=== PATIENT | female | born 1940 | race Caucasian/White ===

== ENCOUNTER 2025-04-20 08:11 | Observation (INO) | payer MEDICARE, SELFPAY ==
[2025-04-20] VITALS (52 sets, daily range): BP systolic 83–137; BP diastolic 49–82; PULSE 69–97; RESP 14–29; TEMP 36.4–38.2; O2SAT 88–97; BMI 25.2
--- NOTE | 2025-04-20 08:20 | XR_ITS ---
WS: [id number] Portable AP upright chest, 04/20/2025 Clinical Data: Weakness Comparison: None. Findings: No nodules or masses are seen. There is minimal opacity at the left costophrenic angle which could represent atelectasis and/or small left effusion. The heart is normal. The pulmonary vascularity is not increased. No pneumonia or pneumothorax is seen. The aortic arch and descending thoracic aorta show mild tortuosity. There are monitor leads on the chest wall. The patient's clothing obscures only minimal detail over the central chest. XR/XR chest 1V portable [id number] Impression: 1. Minimal blunting of left costophrenic angle. 2. Atherosclerosis.
--- NOTE | 2025-04-20 08:21 | W.ED.WEAKNES ---
HPI - Weakness General: Chief complaint: Weakness Stated complaint: Weakness Time Seen by Provider: 04/20/25 08:14 History of Present Illness: 85-year-old female with a history of a glioblastoma on Mekinist and Tafinlar, chronic anticoagulation on Eliquis she says for an irregular heart rhythm, hypertension who presents emergency room with weakness. She is here visiting family from [facility]. Said she became weak yesterday and today was so weak it took 2 people just to get her into the ambulance cot. No focal motor deficits. She is very slow to speak but does answer questions appropriately. She says she feels very weak. No chest pain. No abdominal pain. She has had no vomiting. Related Data Home Medications ?Medication ?Instructions ?Recorded ?Confirmed apixaban 5 mg tablet (Eliquis) 5 mg PO BID 04/20/25 04/20/25 calcium 600 mg (as 1 tab PO DAILY 04/20/25 04/20/25 carbonate)-vitamin D3 10 mcg (400 unit) tablet cyanocobalamin (vitamin B-12) 500 500 mcg PO DAILY 04/20/25 04/20/25 mcg tablet dabrafenib 75 mg capsule (Tafinlar) 75 mg PO BID 04/20/25 04/20/25 furosemide 40 mg tablet 40 mg PO DAILY 04/20/25 04/20/25 loperamide 2 mg capsule 2 mg PO DAILY PRN Diarrhea 04/20/25 04/20/25 loratadine 10 mg tablet 10 mg PO DAILY 04/20/25 04/20/25 metoprolol succinate 50 mg 50 mg PO DAILY 04/20/25 04/20/25 tablet,extended release 24 hr potassium chloride 20 mEq 20 meq PO DAILY 04/20/25 04/20/25 tablet,extended release(part/cryst) spironolactone 50 mg tablet 50 mg PO DAILY 04/20/25 04/20/25 tramadol 50 mg tablet 50 mg PO Q6H PRN Pain 04/20/25 04/20/25 trametinib 2 mg tablet (Mekinist) 2 mg PO .QOD 04/20/25 04/20/25 Allergies Allergy/AdvReac Type Severity Reaction Status Date / Time amoxicillin Allergy Unknown Verified 04/20/25 11:32 atorvastatin Allergy Unknown Verified 04/20/25 11:32 codeine Allergy Unknown Verified 04/20/25 11:32 Review of Systems Narrative: Constitutional symptoms: Negative except as documented in HPI. Skin symptoms: Negative except as documented in HPI. Eye symptoms: Negative except as documented in HPI. ENMT symptoms: Negative except as documented in HPI. Respiratory symptoms: Negative except as documented in HPI. Cardiovascular symptoms: Negative except as documented in HPI. Gastrointestinal symptoms: Negative except as documented in HPI. Genitourinary symptoms: Negative except as documented in HPI. Musculoskeletal symptoms: Negative except as documented in HPI. Neurologic symptoms: Negative except as documented in HPI. Psychiatric symptoms: Negative except as documented in HPI. Endocrine symptoms: Negative except as documented in HPI. Physical Exam Narrative: EXAM NARRATIVE: General: Patient is slightly somnolent but arousable slow to answer questions.. Skin: Warm, dry. Head: Normocephalic, atraumatic. Neck: Supple, trachea midline. Eye: Extraocular movements are intact. Ears, nose, mouth and throat: Dry oral mucosa Cardiovascular: Regular, Normal peripheral perfusion. Respiratory: Lungs are clear to auscultation, respirations are non-labored, breath sounds are equal, Symmetrical chest wall expansion. Gastrointestinal: Soft, Nontender, Non distended Musculoskeletal: Normal ROM, no deformity. Neurological: Somnolent, oriented to family, can answer some questions appropriately but often will drift off before completing the answer., No focal neurological deficit observed. Psychiatric: Unable to assess fully. Cooperative. Course Vital Signs: Vital signs: Vital Signs Temperature 100.8 F H 04/20/25 08:13 Pulse Rate 80 04/20/25 11:30 Respiratory Rate 24 H 04/20/25 11:30 Blood Pressure 118/66 04/20/25 11:30 Pulse Oximetry 90 04/20/25 11:30 Oxygen Delivery Me thod Room Air 04/20/25 08:13 MDM - Weakness Medical Decision Making Medical decision making Patient's reason for coming to the emergency room: Weakness Social determinants: Patient is retired. She is here visiting family. She is from [place]. I reviewed the patient's medical record. Patient has had no previous visits to this facility. 85-year-old female with a history of a glioblastoma on Mekinist and Tafinlar, chronic anticoagulation on Eliquis she says for an irregular heart rhythm, hypertension I reviewed the patient's current home meds Patient is on Macinnis and Tafinlar for glioblastoma. She is anticoagulated on Eliquis. Alternate historians: Family arrives later and gives more history Differential diagnosis for patient presenting with generalized weakness including but not limited to and based on the above HPI, review of systems and physical exam: Sepsis. Dehydration. Renal failure. Electrolyte abnormalities. Anemia. Congestive heart failure. Hypotension. Coronary syndrome. Hepatitis. Cirrhosis. Infections such as pneumonia, urinary tract infection, [place] illness, Cellulitis, Viral infections including influenza and Covid-19. Workup: labwork and lab/exam driven imaging ordered to evaluate, rule in and rule out above pathologies. EKG: Time 9:44 AM. Rate 91. Normal sinus rhythm, No ST-T changes, no ectopy, left bundle branch block, This was reviewed and interpreted by myself the ER physician at 9:50 AM. Patient has no previous EKGs. She is having no cardiac symptoms at this time Chest x-ray: No acute process. No infiltrate. No pneumothorax. This was reviewed and interpreted by myself the emergency room physician. I also reviewed the radiology report. Lab Review: Laboratory results were reviewed and interpreted by myself the emergency room physician. No leukocytosis. No anemia. No renal failure. Lactic acid is 1. Initial troponin is 101 and repeat is 116. There is some change. Assessment of risk: Level of risk: Moderate risk patient. Immunocompromise. Hospitalization considerations: Patient is being admitted for urinary tract infection and weakness. Reexamination: Patient remains somewhat somnolent. She does answer questions a little better now. Family is present. No oxygen requirement Consultation: I spoke with Dr. Rush who agrees to admission Assessment and plan: Urinary tract infection Dehydration Encephalopathy ?IV Rocephin ? IV normal saline 2 L per ?At this point she does not appear septic. No leukocytosis. No lactic acidosis. However she is encephalopathic and has an infection so empirically treated for possible sepsis - 2 L normal saline bolus - IV cefepime for urinary tract infection -Sepsis quality measures. -Lactic acid with a reflex was ordered. -Blood cultures were ordered. ?I reevaluated the patient's volume status after sepsis fluids were given. -I discussed the patient with the hospitalist on-call who is admitting the patient. - Discussed findings and plan with patient. Answered any questions. - All laboratory values were reviewed and interpreted personally by myself, the ER physician - All imaging was reviewed and interpreted personally by myself, the ER physician. - Evaluation and treatment of this problem were appropriate in the emergency setting Lab Data 04/20/25 08:58 04/20/25 08:58 Radiology Impressions Chest X-Ray 04/20/25 08:20 Impression: 1. Minimal blunting of left costophrenic angle. 2. Atherosclerosis. Laboratory Results WBC 4.46 10^3/uL (3.29-11.43) 04/20/25 08:58 RBC 4.41 10^6/uL (3.85-5.65) 04/20/25 08:58 Hgb 12.90 g/dL (11.27-16.99) 04/20/25 08:58 Hct 39.7 % (36-47) 04/20/25 08:58 MCV 90.0 fl (85-98) 04/20/25 08:58 MCH 29.3 pg (27-33) 04/20/25 08:58 MCHC 32.5 g/dL (30-55) 04/20/25 08:58 RDW 15.5 % (12.1-15.1) H 04/20/25 08:58 Plt Count 276 10^3/cmm (157-399) 04/20/25 08:58 MPV 9.5 fL (7.4-10.4) 04/20/25 08:58 Neut % (Auto) 69.8 % 04/20/25 08:58 Lymph % (Auto) 20.6 % 04/20/25 08:58 [place] % (Auto) 8.1 % 04/20/25 08:58 Eos % (Auto) 0.0 % 04/20/25 08:58 Baso % (Auto) 0.4 % 04/20/25 08:58 Neut # (Auto) 3.11 10^3/uL (1.8-7.7) 04/20/25 08:58 Lymph # (Auto) 0.9 10^3/uL (0.8-4.8) 04/20/25 08:58 [place] # (Auto) 0.4 10^3/uL (0.2-0.9) 04/20/25 08:58 Eos # (Auto) 0.0 10^3/uL (0.0-0.8) 04/20/25 08:58 Baso # (Auto) 0.0 10^3/uL (0.0-0.1) 04/20/25 08:58 Nucleated RBC % (auto) 0 % 04/20/25 08:58 Nucleated RBCs # 0.0 /100WBC 04/20/25 08:58 Sodium 135 mmol/L (136-145) L 04/20/25 08:58 Potassium 3.6 mmol/L (3.5-5.1) 04/20/25 08:58 Chloride 98 mmol/L (98-107) 04/20/25 08:58 Carbon Dioxide 25 mmol/L (22-29) 04/20/25 08:58 Anion Gap 15.6 (5-19) 04/20/25 08:58 BUN 14 mg/dL (8-23) 04/20/25 08:58 Creatinine 0.9 mg/dL (0.5-0.9) 04/20/25 08:58 GFR Calculation Not Reportable 04/20/25 08:58 Glucose 171 mg/dL (65-115) H 04/20/25 08:58 Calculated Osmolality 285 mOsm/kg (285-295) 04/20/25 08:58 Lactic Acid 1.0 mmol/L (0.5-2.2) 04/20/25 08:58 Calcium 8.9 mg/dL (8.5-10.5) 04/20/25 08:58 Total Bilirubin 0.4 mg/dL (0.15-1.2) 04/20/25 08:58 AST 42 U/L (0-32) H 04/20/25 08:58 ALT 11 U/L (0-33) 04/20/25 08:58 Alkaline Phosphatase 110 U/L (35-105) H 04/20/25 08:58 Troponin T Baseline 101 ng/L (0-10) H* 04/20/25 08:58 Troponin T 60 Minute 115.0 ng/L (0-10) H 04/20/25 10:04 Delta Troponin T 14.0 ABS# (0-10) H* 04/20/25 10:04 C-Reactive Protein 18.4 mg/L (0.0-4.9) H 04/20/25 08:58 Total Protein 6.1 g/dL (6.6-8.7) L 04/20/25 08:58 Albumin 3.3 g/dL (3.5-5.2) L 04/20/25 08:58 Globulin 2.8 g/dL (1.3-4.6) 04/20/25 08:58 Procalcitonin 0.17 ng/mL (0-0.5) 04/20/25 08:58 Urine Color Yellow (Yellow) 04/20/25 08:49 Urine Appearance Cloudy (CLEAR) A 04/20/25 08:49 Urine pH 6.5 (5-7) 04/20/25 08:49 Ur Specific [place] 1.014 (1.005-1.030) 04/20/25 08:49 Urine Protein 1+ (Negative) A 04/20/25 08:49 Urine Glucose (UA) Negative (Normal) 04/20/25 08:49 Urine Ketones Negative (Negative) 04/20/25 08:49 Urine Blood Trace (Negative) A 04/20/25 08:49 Urine Nitrate Positive (Negative) A 04/20/25 08:49 Urine Bilirubin Negative (Negative) 04/20/25 08:49 Urine Urobilinogen 0.2 mg/dL (Negative) 04/20/25 08:49 Ur Leukocyte Esterase 3+ (Negative) A 04/20/25 08:49 Urine RBC 0-2 /hpf (0-2) 04/20/25 08:49 Urine WBC >100 /hpf (0-5) H 04/20/25 08:49 Ur Squamous Epith Cells 0-5 /hpf (0-5) 04/20/25 08:49 Amorphous Sediment Not Reportable 04/20/25 08:49 Urine Bacteria 4+ /hpf (NONE) H 04/20/25 08:49 Hyaline Casts 1.65 /lpf 04/20/25 08:49 Influenza A (PCR) Negative (Negative) 04/20/25 08:49 Influenza Type B (PCR) Negative (Negative) 04/20/25 08:49 RSV (PCR) Negative (Negative) 04/20/25 08:49 SARS-CoV-2 (PCR) Negative (Negative) 04/20/25 08:49 All radiology interpretation(s) finalized by discharge Discharge Plan Discharge Admit Provider: Rao Gutierrez Condition: Stable Coding Level of Care Code ED Sales Consultant Insurance for Abdoulg Terry
[2025-04-20 09:06] LABS: Hematocrit 39.7 % (36-47); Hemoglobin 12.90 g/dL (11.27-16.99); Mean Corpuscular HGB Conc 32.5 g/dL (30-55); Mean Corpuscular Hemoglobin 29.3 pg (27-33); Mean Corpuscular Volume 90.0 fl (85-98); Nucleated Red Blood Cells % 0 %; Platelet Count 276 10^3/cmm (157-399); Red Blood Count 4.41 10^6/uL (3.85-5.65); White Blood Count 4.46 10^3/uL (3.29-11.43)
[2025-04-20 09:15] LABS: Glucose Urine UA Negative (Normal); Nitrate Urine Positive (Negative); Specific Gravity, Urine 1.014 (1.005-1.030)
[2025-04-20 09:33] LABS: Alanine Aminotransferase 11 U/L (0-33); Albumin Level 3.3 g/dL (3.5-5.2); Alkaline Phosphatase 110 U/L (35-105); Anion Gap 15.6 (5-19); Aspartate Amino Transferase 42 U/L (0-32); Blood Urea Nitrogen 14 mg/dL (8-23); Calcium 8.9 mg/dL (8.5-10.5); Carbon Dioxide 25 mmol/L (22-29); Chloride 98 mmol/L (98-107); Globulin 2.8 g/dL (1.3-4.6); Glucose 171 mg/dL (65-115); Lactic Sepsis W/Reflex 1.0 mmol/L (0.5-2.2); Osmolality Calculated 285 mOsm/kg (285-295); Potassium 3.6 mmol/L (3.5-5.1); Sodium 135 mmol/L (136-145); Total Protein 6.1 g/dL (6.6-8.7)
[2025-04-20 09:40] LABS: Procalcitonin 0.17 ng/mL (0-0.5)
[2025-04-20 09:44] LABS: Troponin(5th) Baseline 101 ng/L (0-10)
--- NOTE | 2025-04-20 09:44 | ECG_ITS ---
[facility] Date: 2025-[facility]20 Pat Name: Jennifer Guzman Department: Room: Gender: Female Jewel Stringer: : 1940 Requested By: Prerna Chavez Order Number: [id number] Reading MD: VIVIEN DUDLEY Measurements Intervals [place] Rate: 91 P: 2 SD: 153 QRS: -47 QRSD: 133 T: 119 QT: 373 QTc: 459 Interpretive Statements SINUS RHYTHM LEFT AXIS DEVIATION [QRS AXIS < -30] LEFT BUNDLE BRANCH BLOCK [120+ ms QRS DURATION, 80+ ms Q/S IN V1/V2, 85+ ms R IN I/aVL/V5/V6] No previous ECG available for comparison Electronically Signed On 04-21-2025 20:38:33 MOLDER TRIMMER by VIVIEN DUDELY [email or web address] [id number]
[2025-04-20 09:48] LABS: Respiratory Syncytial Virus Ce NEGATIVE (Negative); SARS-CoV-2 PCR NEGATIVE (Negative)
[2025-04-20 10:07] LABS: UA Slide Review UA Slide Review Perf
[2025-04-20] MEDS: cefepime 2,000 mg SDV 2000 MG IVP (10:43)
[2025-04-20] MEDS: acetaminophen 1,000 MG/100 ML PIGGYBACK 400 MG IV (10:44)
--- NOTE | 2025-04-20 10:53 | PC.PHAR ---
Pharmacy note on both chemo medications.
--- NOTE | 2025-04-20 10:54 | PC.NURSE ---
NO ALLERGY BAND unable to assess pt medication allergies during triage. when family arrived this RN asked if they knew pts allergies they are unsure. family is going to call pts assisted living facility to get those allergies.
--- NOTE | 2025-04-20 11:36 | ECG_ITS ---
[facility] Date: 2025-[facility]20 Pat Name: Jennifer Guzman Department: Room: 266 Gender: Female Orchard Manager: : 1940 Requested By: Prerna Chavez Order Number: [id number] Reading MD: VIVIEN DUDLEY Measurements Intervals [place] Rate: 78 P: 49 AK: 187 QRS: -37 QRSD: 142 T: 142 QT: 445 QTc: 507 Interpretive Statements SINUS RHYTHM POSSIBLE LEFT ATRIAL ENLARGEMENT [-0.1mV P-WAVE IN V1/V2] LEFT AXIS DEVIATION [QRS AXIS < -30] LEFT BUNDLE BRANCH BLOCK [120+ ms QRS DURATION, 80+ ms Q/S IN V1/V2, 85+ ms R IN I/aVL/V5/V6] Compared to ECG 04/20/2025 09:44:18 No significant changes Electronically Signed On 04-21-2025 20:38:08 SOIL SCIENTIST by VIVIEN DUDLEY [email or web address] [id number]
--- NOTE | 2025-04-20 11:47 | PC.NURSE ---
This nurse took report from KEON Cervantes in ER at 1146am.
--- NOTE | 2025-04-20 12:38 | PC.NURSE ---
This nurse assumed care of pt at this time.
[2025-04-20 15:22] LABS: Troponin 5 6HR Delta 5.5 ng/L (0-12)
[2025-04-20 15:45] LABS: Troponin 5 6HR 106.5 ng/L (0-10)
--- NOTE | 2025-04-20 18:32 | PM.HP ---
Providers/Chief Complaint Admitting Physician: Rao Gutierrez MD Chief Complaint: Weakness History of Present Illness Jennifer Guzman is a 85 year old female . She is a poor historian, majority of history taken from handoff from the ER doc. She has a history of glioblastoma on chemotherapy, chronic anticoagulation on Eliquis for atrial fibrillation, hypertension she came to the ED this afternoon while visiting family. Patient had become weak the day before noticed by family, had to lift her to get her to the ambulance. Generalized, nonfocal. When I saw the patient today, she was responsive answered questions and 2-3 word sentences, did not appear distressed. She did complain of sharp back pain from laying in bed. Labs on arrival had no leukocytosis, no electrolyte abnormalities, mildly elevated troponin but markedly positive urinalysis with leukocyte esterase and nitrates culture sent. Patient treated empirically With 2 g of IV cefepime, 2 L of saline. Home medications metoprolol, spironolactone, apixaban resumed. Medications/Allergies Home Medications ?Medication ?Instructions ?Recorded ?Confirmed ?Last Taken ?Type apixaban 5 mg tablet (Eliquis) 5 mg PO BID 04/20/25 04/20/25 04/19/25 History calcium 600 mg (as 1 tab PO DAILY 04/20/25 04/20/25 04/19/25 History carbonate)-vitamin D3 10 mcg (400 unit) tablet cyanocobalamin (vitamin B-12) 500 500 mcg PO DAILY 04/20/25 04/20/25 04/19/25 History mcg tablet dabrafenib 75 mg capsule (Tafinlar) 75 mg PO BID 04/20/25 04/20/25 04/19/25 History furosemide 40 mg tablet 40 mg PO DAILY 04/20/25 04/20/25 04/19/25 History loperamide 2 mg capsule 2 mg PO DAILY PRN Diarrhea 04/20/25 04/20/25 Unknown History loratadine 10 mg tablet 10 mg PO DAILY 04/20/25 04/20/25 04/19/25 History metoprolol succinate 50 mg 50 mg PO DAILY 04/20/25 04/20/25 04/19/25 History tablet,extended release 24 hr potassium chloride 20 mEq 20 meq PO DAILY 04/20/25 04/20/25 04/19/25 History tablet,extended release(part/cryst) spironolactone 50 mg tablet 50 mg PO DAILY 04/20/25 04/20/25 04/19/25 History tramadol 50 mg tablet 50 mg PO Q6H PRN Pain 04/20/25 04/20/25 Unknown History trametinib 2 mg tablet (Mekinist) 2 mg PO .QOD 04/20/25 04/20/25 04/19/25 History Allergies Allergy/AdvReac Type Severity Reaction Status Date / Time amoxicillin Allergy Unknown Verified 04/20/25 11:32 atorvastatin Allergy Unknown Verified 04/20/25 11:32 codeine Allergy Unknown Verified 04/20/25 11:32 Vitals/I&O/Wt Last Vital Signs Temp 97.6 F 04/20/25 16:36 Pulse 69 04/20/25 16:36 Resp 18 04/20/25 16:36 BP 83/49 04/20/25 16:36 Pulse Ox 91 04/20/25 16:36 O2 Del Method Room Air 04/20/25 16:36 04/20/25 04/20/25 04/20/25 06:59 14:59 22:59 Intake Total 1600 / 1600 Balance 1600 / 1600 Weight last 48 hrs Weight 62.596 kg Physical Exam Const: COMMON NORMALS: patient oriented x3 and alert GENERAL APPEARANCE: cooperative ORIENTATION/CONSCIOUSNESS: Yes awake HENMT: COMMON NORMALS: oropharynx normal Neck/C-Spine: COMMON NORMALS: no JVD Resp: COMMON NORMALS: normal respiratory effort and clear to auscultation bilaterally AUSCULTATION: clear to auscultation bilaterally Cardio: COMMON NORMALS: no JVD, regular rhythm, S1 normal heart sound present, S2 normal heart sound present and No murmurs present (Cardio) RHYTHM: regular rhythm HEART SOUNDS: S1 normal heart sound present and S2 normal heart sound present GI: COMMON NORMALS: Normal to inspection, nondistended, normoactive bowel sounds present, Soft to palpation and non-tender PALPATION: Yes Soft to palpation Extremity: COMMON NORMALS: no joint enlargement and no pedal edema Neuro: COMMON NORMALS: patient oriented x3 and moves all extremities SENSORIUM/ORIENTATION: Yes alert Psych: OTHER: Alert, disjointed speech patterns, 3 word sentences. Is able to understand commands. Lethargic. Skin: COMMON NORMALS: no rashes or lesions noted GENERAL SKIN EXAM: no rashes or lesions noted Data 04/21/25 05:08 04/20/25 08:58 Micro: Microbiology 04/20/25 09:00 Blood Culture - Preliminary Blood SPECIMEN COLLECTED 04/20/25 08:58 Blood Culture - Preliminary Blood SPECIMEN COLLECTED A&P Assessment and plan 1. Acute metabolic encephalopathy: Plan: Acute metabolic encephalopathy in the setting of acute cystitis Glioblastoma Immunosuppression on chemotherapy agents Paroxysmal atrial fibrillation, patient's currently in sinus rhythm per electrocardiogram 04/20/2025 Independently reviewed chest x-ray, no infiltrate Type II VT, possibly supply/demand mismatch, history of A-fib, no signs of heart failure, no orthopnea, no dyspnea, denies chest pain. Will follow. Elevated CRP, likely infectious source Pyuria Plan: Continue empiric antibiotic therapy with IV cefepime, ESBL coverage Trend white count, obtain urine cultures Trend troponin, consider echocardiogram Neurochecks, monitor mental status DVT prophylaxis?continue Eliquis for paroxysmal A-fib prophylaxis GI prophylaxis not indicated Disposition: Plan discharge home with no needs overnight, patient placed in observation PDMP PDMP Reviewed: Not Reviewed Attestations Medical Necessity Statement*: Patient does have several comorbidities, nonacute. Hospitalized for acute insult colopathy from cystitis. Improving now, since discharge from the ER. Anticipate home discharge with no needs tomorrow. Diagnoses Acute metabolic encephalopathy G93.41
[2025-04-20] MEDS: cefepime 1,000 mg SDV 1000 MG IVP (19:50)
[2025-04-21] VITALS (9 sets, daily range): BP systolic 109–130; BP diastolic 58–72; PULSE 71–102; RESP 14–18; TEMP 36.7–37.3; O2SAT 92–96
[2025-04-21] MEDS: metoprolol succinate ER (24 HR) 50 mg Tablet PO (05:27)
[2025-04-21 06:03] LABS: Hematocrit 37.9 % (36-47); Hemoglobin 12.00 g/dL (11.27-16.99); Mean Corpuscular HGB Conc 31.7 g/dL (30-55); Mean Corpuscular Hemoglobin 28.8 pg (27-33); Mean Corpuscular Volume 90.9 fl (85-98); Nucleated Red Blood Cells % 0 %; Platelet Count 224 10^3/cmm (157-399); Red Blood Count 4.17 10^6/uL (3.85-5.65); White Blood Count 4.84 10^3/uL (3.29-11.43)
[2025-04-21 06:31] LABS: Alanine Aminotransferase 9 U/L (0-33); Albumin Level 3.0 g/dL (3.5-5.2); Alkaline Phosphatase 94 U/L (35-105); Anion Gap 15.1 (5-19); Aspartate Amino Transferase 38 U/L (0-32); Blood Urea Nitrogen 12 mg/dL (8-23); Calcium 8.1 mg/dL (8.5-10.5); Carbon Dioxide 24 mmol/L (22-29); Chloride 101 mmol/L (98-107); Globulin 2.9 g/dL (1.3-4.6); Glucose 139 mg/dL (65-115); Magnesium 1.9 mg/dL (1.7-2.3); Osmolality Calculated 286 mOsm/kg (285-295); Potassium 3.1 mmol/L (3.5-5.1); Sodium 137 mmol/L (136-145); Total Protein 5.9 g/dL (6.6-8.7)
[2025-04-21] MEDS: cefepime 1,000 mg SDV 1000 MG IVP ×2 (08:38→21:11)
--- NOTE | 2025-04-21 09:54 | PC.CHAP ---
Pastoral Care Encounter/Spiritual Assessment Type of Contact [] Declined unified communications engineer visit [] Patient/Family/Request visit [] Outpatient visit [] Follow-up visit [] Physician referral [] Code/Alert [x] Routine visit [] Staff referral [] Actively dying [] Patient sleeping [] Family support [] [] Out of room [] Palliative care [] [] Receiving care in room [] Pre-surgical visit [] Trauma [] Long length of stay [] ICU visit [] Other: Relational/Emotional Strength [x] Patient feels connected with others/family/visitors/staff [] Distress [] Loneliness/isolation [] Abandonment Spirituality of Patient [x] Person of Marielos [] Attends Gnosticist of their Marielos [x] Believes in Prayer [] Reads Bible or Sikhism materials [] There are Spiritual issues to be addressed Mold Cleaner Interventions [x] Prayer [x] Active listening [] Non-anxious presence [x] Spiritual/emotional support [] Crisis/trauma care [] Spiritual counseling [] Bereavement support [] Provided bereavement packet [] Provided Bible/devotional materials [] Provided toy/stuffed animal, coloring book to patient or family member [] Provided Communion [] Anointing/[place] [] Salvation [x] Completed spiritual assessment [] Other: Impact on Illness or Injury [] Angry [] Fearful [] Anxious [] Often cries [] Exhaustion [] Unable to work [] Unable to attend yarsanism [] Unable to walk/stand [] Unable to read [] Unable to drive [] Unable to eat/drink [] Unable to sleep [] Unable to be with family [] Patient intubated [] Other: Summary Time spent with patient 5 min
--- NOTE | 2025-04-21 14:36 | P.PN_ITS ---
Subjective 2 Subjective: Patient is more alert today, answers questions coherently. Was complaining of some diarrhea, but discussed with nursing patient has not had any bowel movement since admission Was planning to discharge patient back home for the holidays, but urine analysis grew gram-negative rods. Family at bedside described that the patient has had recurrent urinary tract infections requiring prior hospitalizations. In the ER although cannot be ruled out, therefore waiting susceptibilities. Currently treated empirically with with IV cefepime 1 g every 12 hours Vitals/I&O/Wt Last Vital Signs Temp 98.9 F 04/21/25 11:47 Pulse 76 04/21/25 11:47 Resp 14 04/21/25 11:47 BP 115/62 04/21/25 11:47 Pulse Ox 95 04/21/25 11:47 O2 Del Method Room Air 04/21/25 11:47 04/20/25 04/21/25 04/21/25 22:59 06:59 14:59 Intake Total 1076.25 / 1076.25 Balance 1076.25 / 1076.25 Weight last 48 hrs Weight 63.049 kg Weight 62.596 kg Weight 62.596 kg Physical Exam 2 Const: COMMON NORMALS: patient oriented x3 and alert GENERAL APPEARANCE: c ooperative ORIENTATION/CONSCIOUSNESS: Yes awake HENMT: COMMON NORMALS: oropharynx normal Neck/C-Spine: COMMON NORMALS: no JVD Resp: COMMON NORMALS: normal respiratory effort and clear to auscultation bilaterally AUSCULTATION: clear to auscultation bilaterally Cardio: COMMON NORMALS: no JVD, regular rhythm, S1 normal heart sound present, S2 normal heart sound present and No murmurs present (Cardio) RHYTHM: regular rhythm HEART SOUNDS: S1 normal heart sound present and S2 normal heart sound present GI: COMMON NORMALS: Normal to inspection, nondistended, normoactive bowel sounds present, Soft to palpation and non-tender PALPATION: Yes Soft to palpation Extremity: COMMON NORMALS: no joint enlargement and no pedal edema Neuro: COMMON NORMALS: patient oriented x3 and moves all extremities S ENSORIUM/ORIENTATION: Yes alert Psych: OTHER: Alert, disjointed speech patterns, 3 word sentences. Is able to understand commands. Lethargic. Skin: COMMON NORMALS: no rashes or lesions noted GENERAL SKIN EXAM: no rashes or lesions noted Data 04/21/25 05:08 04/21/25 05:08 Micro: Microbiology 04/20/25 08:49 Urine Culture - Preliminary Urine,Clean Catch Gram Negative Rods 04/20/25 09:00 Blood Culture - Preliminary Blood NEGATIVE TO DATE 04/20/25 08:58 Blood Culture - Preliminary Blood NEGATIVE TO DATE A&P Assessment and plan 1. Acute metabolic encephalopathy: Plan: Acute metabolic encephalopathy in the setting of acute cystitis Glioblastoma Immunosuppression on chemotherapy agents Paroxysmal atrial fibrillation, patient's currently in sinus rhythm per electrocardiogram 04/20/2025 Independently reviewed chest x-ray, no infiltrate Type II LA, possibly supply/demand mismatch, history of A-fib, no signs of heart failure, no orthopnea, no dyspnea, denies chest pain. Will follow. Elevated CRP, likely infectious source Pyuria Plan: Continue empiric antibiotic therapy with IV cefepime, ESBL coverage Trend white count, continue to wait for urine cultures for definitive treatment of recurrent UTIs Neurochecks, monitor mental status DVT prophylaxis?continue Eliquis for paroxysmal A-fib prophylaxis GI prophylaxis not indicated Disposition: Plan discharge home with no needs by tomorrow, continue observation status PDMP PDMP Reviewed: Not Reviewed Attestations 2 Medical Necessity Statement*: Patient does have several comorbidities, nonacute. Hospitalized for acute insult colopathy from cystitis. Improving now, since discharge from the ER. Anticipate home discharge with no needs tomorrow. Diagnoses Acute metabolic encephalopathy G93.41
[2025-04-22] VITALS (8 sets, daily range): BP systolic 118–151; BP diastolic 64–83; PULSE 63–88; RESP 15–18; TEMP 36.4–37; O2SAT 92–95
[2025-04-22] MEDS: metoprolol succinate ER (24 HR) 50 mg Tablet PO (04:38)
[2025-04-22] MEDS: cefepime 1,000 mg SDV 1000 MG IVP (08:32)
[2025-04-22 18:34] LABS: C.Diff PCR (Lab) NEGATIVE (Negative)
--- NOTE | 2025-04-22 20:20 | P.PN_ITS ---
Subjective 2 Subjective: Patient still having diarrhea, not complaining of any dysuria. She was on the bedside commode having persistent diarrhea, daughter at bedside states that it has been runny and watery. Said the urine sample came back, informed family that she had no drug-resistant UTI Vitals/I&O/Wt Last Vital Signs Temp 97.5 F L 04/23/25 07:39 Pulse 62 04/23/25 07:39 Resp 18 04/23/25 07:39 BP 110/63 04/23/25 07:39 Pulse Ox 95 04/23/25 07:39 O2 Del Method Room Air 04/23/25 07:39 04/22/25 04/23/25 04/23/25 22:59 06:59 14:59 Intake Total 1000 / 1360 600 / 1960 Balance 1000 / 1360 600 / 1960 Weight last 48 hrs Weight 64.864 kg Weight 65 kg Physical Exam 2 Const: COMMON NORMALS: patient oriented x3 and alert GENERAL APPEARANCE: c ooperative ORIENTATION/CONSCIOUSNESS: Yes awake HENMT: COMMON NORMALS: oropharynx normal Neck/C-Spine: COMMON NORMALS: no JVD Resp: COMMON NORMALS: normal respiratory effort and clear to auscultation bilaterally AUSCULTATION: clear to auscultation bilaterally Cardio: COMMON NORMALS: no JVD, regular rhythm, S1 normal heart sound present, S2 normal heart sound present and No murmurs present (Cardio) RHYTHM: regular rhythm HEART SOUNDS: S1 normal heart sound present and S2 normal heart sound present GI: COMMON NORMALS: Normal to inspection, nondistended, normoactive bowel sounds present, Soft to palpation and non-tender PALPATION: Yes Soft to palpation Extremity: COMMON NORMALS: no joint enlargement and no pedal edema Neuro: COMMON NORMALS: patient oriented x3 and moves all extremities S ENSORIUM/ORIENTATION: Yes alert Psych: OTHER: Alert, disjointed speech patterns, 3 word sentences. Is able to understand commands. Lethargic. Skin: COMMON NORMALS: no rashes or lesions noted GENERAL SKIN EXAM: no rashes or lesions noted Data 04/21/25 05:08 04/21/25 05:08 Micro: Microbiology 04/20/25 08:49 Urine Culture - Final Urine,Clean Catch Escherichia coli A&P Assessment and plan 1. 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 Will follow. Elevated CRP, likely infectious source Pyuria Plan: Concern for C. difficile colitis, with watery diarrhea that persisted with recent multiple treatments for UTIs. No drug-resistant bacteria in UA Continue supportive measures, IV fluids, solid diet ? C. difficile isolation and PCR, will follow-up. Start p.o. vancomycin. DVT prophylaxis?continue Eliquis for paroxysmal A-fib prophylaxis GI prophylaxis not indicated Disposition: Plan discharge home with no needs by tomorrow, continue observation status PDMP PDMP Reviewed: Not Reviewed Attestations 2 Medical Necessity Statement*: Patient has worsening diarrhea, as risk factors for C. difficile, will have to rule out for patient safe for discharge. Treat underlying gastrointestinal losses. Diagnoses Acute metabolic encephalopathy G93.41
[2025-04-23] VITALS: BP 139/73; PULSE 69; RESP 17; TEMP 36.7; O2SAT 94
[2025-04-23] MEDS: metoprolol succinate ER (24 HR) 50 mg Tablet PO (04:57)
[2025-04-23 05:00] VITALS: BP 125/74; PULSE 65; RESP 16; TEMP 36.6; O2SAT 94
[2025-04-23 07:32] VITALS: PULSE 62
[2025-04-23 07:39] VITALS: BP 110/63; PULSE 62; RESP 18; TEMP 36.4; O2SAT 95
[2025-04-23 11:31] VITALS: BP 117/70; PULSE 67; RESP 16; TEMP 36.6; O2SAT 95
--- NOTE | 2025-04-23 13:20 | P.DS_ITS ---
Discharge Providers Date of Admission: 04/22/25 18:14 Date of Discharge: April 23, 2025 Attending Provider at Admission: Rao Gutierrez MD Attending Provider at Discharge: Rao Gutierrez MD Diagnoses at Discharge Discharge Diagnosis 1. Acute metabolic encephalopathy: Reason for Visit Reason for Visit: Weakness Brief History: Jennifer Guzman is a 85 year old female . She is a poor historian, majority of history taken from handoff from the ER doc. She has a history of glioblastoma on chemotherapy, chronic anticoagulation on Eliquis for atrial fibrillation, hypertension she came to the ED this afternoon while visiting family. Patient had become weak the day before noticed by family, had to lift her to get her to the ambulance. Generalized, nonfocal. When I saw the patient today, she was responsive answered questions and 2-3 word sentences, did not appear distressed. She did complain of sharp back pain from laying in bed. Labs on arrival had no leukocytosis, no electrolyte abnormalities, mildly elevated troponin but markedly positive urinalysis with leukocyte esterase and nitrates culture sent. Patient treated empirically With 2 g of IV cefepime, 2 L of saline. Home medications metoprolol, spironolactone, apixaban resumed. 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 Elevated CRP, likely infectious source Pyuria Plan: Concern for C. difficile colitis, with watery diarrhea ruled out by negative study. Patient may be having side effects for recurrent use of antibiotics. She has received IV broad-spectrum for 2 days since she has been here, so I will not discharged her with any new medications. No drug-resistant bacteria in UA Continue supportive measures, IV fluids, solid diet Physical Exam Const: COMMON NORMALS: patient oriented x3 and alert GENERAL APPEARANCE: cooperative ORIENTATION/CONSCIOUSNESS: Yes awake HENMT: COMMON NORMALS: oropharynx normal Neck/C-Spine: COMMON NORMALS: no JVD Resp: COMMON NORMALS: normal respiratory effort and clear to auscultation bilaterally AUSCULTATION: clear to auscultation bilaterally Cardio: COMMON NORMALS: no JVD, regular rhythm, S1 normal heart sound present, S2 normal heart sound present and No murmurs present (Cardio) RHYTHM: regular rhythm HEART SOUNDS: S1 normal heart sound present and S2 normal heart sound present GI: COMMON NORMALS: Normal to inspection, nondistended, normoactive bowel sounds present, Soft to palpation and non-tender PALPATION: Yes Soft to palpation Extremity: COMMON NORMALS: no joint enlargement and no pedal edema Neuro: COMMON NORMALS: patient oriented x3 and moves all extremities SENSORIUM/ORIENTATION: Yes alert Psych: OTHER: Alert, disjointed speech patterns, 3 word sentences. Is able to understand commands. Lethargic. Skin: COMMON NORMALS: no rashes or lesions noted GENERAL SKIN EXAM: no rashes or lesions noted Discharge Data Studies Completed and Pending Completed Studies During Hospitalization Category Date Time Status XR chest 1V portable [id number] Stat Exams 04/20/25 08:20 Completed Pending at discharge Category Date Time Status Blood Culture Stat Lab 04/20/25 09:00 Results Stool Culture - Enteric [Salmonella / Shigella / Campy] Lab 04/22/25 14:12 Ordered Routine Radiology Impressions Chest X-Ray 04/20/25 08:20 Impression: 1. Minimal blunting of left costophrenic angle. 2. Atherosclerosis. Laboratory Results WBC 4.84 10^3/uL (3.29-11.43) 04/21/25 05:08 RBC 4.17 10^6/uL (3.85-5.65) 04/21/25 05:08 Hgb 12.00 g/dL (11.27-16.99) 04/21/25 05:08 Hct 37.9 % (36-47) 04/21/25 05:08 MCV 90.9 fl (85-98) 04/21/25 05:08 MCH 28.8 pg (27-33) 04/21/25 05:08 MCHC 31.7 g/dL (30-55) 04/21/25 05:08 RDW 15.8 % (12.1-15.1) H 04/21/25 05:08 Plt Count 224 10^3/cmm (157-399) 04/21/25 05:08 MPV 10.2 fL (7.4-10.4) 04/21/25 05:08 Neut % (Auto) 80.0 % 04/21/25 05:08 Lymph % (Auto) 12.6 % 04/21/25 05:08 [place] % (Auto) 3.3 % 04/21/25 05:08 Eos % (Auto) 0.0 % 04/21/25 05:08 Baso % (Auto) 0.4 % 04/21/25 05:08 Neut # (Auto) 3.87 10^3/uL (1.8-7.7) 04/21/25 05:08 Lymph # (Auto) 0.6 10^3/uL (0.8-4.8) L 04/21/25 05:08 [place] # (Auto) 0.2 10^3/uL (0.2-0.9) 04/21/25 05:08 Eos # (Auto) 0.0 10^3/uL (0.0-0.8) 04/21/25 05:08 Baso # (Auto) 0.0 10^3/uL (0.0-0.1) 04/21/25 05:08 Nucleated RBC % (auto) 0 % 04/21/25 05:08 Nucleated RBCs # 0.0 /100WBC 04/21/25 05:08 Sodium 137 mmol/L (136-145) 04/21/25 05:08 Potassium 3.1 mmol/L (3.5-5.1) L 04/21/25 05:08 Chloride 101 mmol/L (98-107) 04/21/25 05:08 Carbon Dioxide 24 mmol/L (22-29) 04/21/25 05:08 Anion Gap 15.1 (5-19) 04/21/25 05:08 BUN 12 mg/dL (8-23) 04/21/25 05:08 Creatinine 0.9 mg/dL (0.5-0.9) 04/21/25 05:08 GFR Calculation Not Reportable 04/21/25 05:08 Glucose 139 mg/dL (65-115) H 04/21/25 05:08 Calculated Osmolality 286 mOsm/kg (285-295) 04/21/25 05:08 Lactic Acid 1.0 mmol/L (0.5-2.2) 04/20/25 08:58 Calcium 8.1 mg/dL (8.5-10.5) L 04/21/25 05:08 Phosphorus 2.2 mg/dL (2.5-4.5) L 04/21/25 05:08 Magnesium 1.9 mg/dL (1.7-2.3) 04/21/25 05:08 Total Bilirubin 0.4 mg/dL (0.15-1.2) 04/21/25 05:08 AST 38 U/L (0-32) H 04/21/25 05:08 ALT 9 U/L (0-33) 04/21/25 05:08 Alkaline Phosphatase 94 U/L (35-105) 04/21/25 05:08 Troponin T Baseline 101 ng/L (0-10) H* 04/20/25 08:58 Troponin T 60 Minute 115.0 ng/L (0-10) H 04/20/25 10:04 Delta Troponin T 14.0 ABS# (0-10) H* 04/20/25 10:04 Troponin T Hi Sens 6Hr 106.5 ng/L (0-10) H 04/20/25 14:50 Troponin T Hi Sens 6Hr Delta 5.5 ng/L (0-12) 04/20/25 14:50 C-Reactive Protein 18.4 mg/L (0.0-4.9) H 04/20/25 08:58 Total Protein 5.9 g/dL (6.6-8.7) L 04/21/25 05:08 Albumin 3.0 g/dL (3.5-5.2) L 04/21/25 05:08 Globulin 2.9 g/dL (1.3-4.6) 04/21/25 05:08 Procalcitonin 0.17 ng/mL (0-0.5) 04/20/25 08:58 Urine Color Yellow (Yellow) 04/20/25 08:49 Urine Appearance Cloudy (CLEAR) A 04/20/25 08:49 Urine pH 6.5 (5-7) 04/20/25 08:49 Ur Specific [place] 1.014 (1.005-1.030) 04/20/25 08:49 Urine Protein 1+ (Negative) A 04/20/25 08:49 Urine Glucose (UA) Negative (Normal) 04/20/25 08:49 Urine Ketones Negative (Negative) 04/20/25 08:49 Urine Blood Trace (Negative) A 04/20/25 08:49 Urine Nitrate Positive (Negative) A 04/20/25 08:49 Urine Bilirubin Negative (Negative) 04/20/25 08:49 Urine Urobilinogen 0.2 mg/dL (Negative) 04/20/25 08:49 Ur Leukocyte Esterase 3+ (Negative) A 04/20/25 08:49 Urine RBC 0-2 /hpf (0-2) 04/20/25 08:49 Urine WBC >100 /hpf (0-5) H 04/20/25 08:49 Ur Squamous Epith Cells 0-5 /hpf (0-5) 04/20/25 08:49 Amorphous Sediment Not Reportable 04/20/25 08:49 Urine Bacteria 4+ /hpf (NONE) H 04/20/25 08:49 Hyaline Casts 1.65 /lpf 04/20/25 08:49 C. difficile (PCR) Negative (Negative) 04/22/25 17:40 Influenza A (PCR) Negative (Negative) 04/20/25 08:49 Influenza Type B (PCR) Negative (Negative) 04/20/25 08:49 RSV (PCR) Negative (Negative) 04/20/25 08:49 SARS-CoV-2 (PCR) Negative (Negative) 04/20/25 08:49 Vitals Last Vital Signs Temp 97.8 F 04/23/25 11:31 Pulse 67 04/23/25 11:31 Resp 16 04/23/25 11:31 BP 117/70 04/23/25 11:31 Pulse Ox 95 04/23/25 11:31 O2 Del Method Room Air 04/23/25 11:31 Discharge Plan Discharge Patient Disposition: Home Condition: Stable Prescriptions: Continued furosemide 40 mg tablet 40 mg PO DAILY loperamide 2 mg capsule 2 mg PO DAILY PRN (Reason: Diarrhea) metoprolol succinate 50 mg tablet extended release 24 hr 50 mg PO DAILY tramadol 50 mg tablet 50 mg PO Q6H PRN (Reason: Pain) potassium chloride 20 mEq tablet,ER particles/crystals 20 meq PO DAILY cyanocobalamin (vitamin B-12) 500 mcg tablet 500 mcg PO DAILY loratadine 10 mg tablet 10 mg PO DAILY spironolactone 50 mg tablet 50 mg PO DAILY calcium carbonate-vitamin D3 600 mg-10 mcg (400 unit) tablet 1 tab PO DAILY Eliquis 5 mg tablet 5 mg PO BID Tafinlar 75 mg Capsule 75 mg PO BID Rx Instructions: administer approximately 12 hours apart [place] 2 mg Tablet 2 mg PO .QOD Rx Instructions: must be taken on empty stomach, at least 1 hr before or 2-3 hrs after meal/food Discharge Order = DC NOW: Discharge Order (Routine); Ordered 04/23/25 Ordered By: Rao Gutierrez Discharge Diet: Advance as tolerated Discharge Activity: Increase activity as tolerated Patient Instructions: Opioid Safety, Patient Portal & Lani Instructions Discharge Attestations Time Spent in Discharge Care*: greater than 30 min Quality Metrics Clinical Quality Measures [ No reported AMI, CVA or VTE this stay] Coding Level of Care Code 92335 Diagnoses Acute metabolic encephalopathy G93.41
== END 2025-04-23 14:00 | disposition home or self-care (01) ==
LOC: ER 09:36 → MEDSURG 11:31
PROVIDERS: Admitting Provider Internal Medicine; Emergency Provider Emergency Medicine; Visit Provider Internal Medicine
DX: G93.41 Metabolic encephalopathy (principal); Z79.01 Long term (current) use of anticoagulants; I48.91 Unspecified atrial fibrillation; I10 Essential (primary) hypertension
CPT/HCPCS: 36415; 71045; 80053; 81001; 83605; 83735; 84100; 84145; 84484; 85025; 86140; 87040; 87077; 87086; 87186; 87493; 87637; 93005; 96365; 96375; 99285; G0378; J0131; J0692; J7030; J7120; J9999